=== PATIENT | female | born 1995 | race Two or more races ===

== ENCOUNTER 2024-05-13 04:41 | Day surgery (SDC) | payer OTHER ==
[2024-05-12 09:58] VITALS: BMI 42.9
[2024-05-13] MEDS: ceFAZolin SODIUM 1 GM VIAL IVPB ONE
[2024-05-13] MEDS ORDERED: PROPOFOL 20 ML ONE ×2 (14:36→15:12)
[2024-05-13] MEDS ORDERED: DEXAMETHASONE SOD PHOSPHATE 4 MG/1 ML VIAL ONE (14:37)
[2024-05-13] MEDS ORDERED: MIDAZOLAM HCL 2 MG/2 ML SINGLE DOSE VIAL ONE (14:37)
[2024-05-13] MEDS ORDERED: KETOROLAC TROMETHAMINE 30 MG/1 ML VIAL ONE (14:37)
[2024-05-13] MEDS ORDERED: LIDOCAINE HCL/PF 2% SDV 5ML VIAL ONE (14:37)
[2024-05-13] MEDS ORDERED: ONDANSETRON 4 MG/2 ML VIAL ONE (14:37)
[2024-05-13] MEDS: SILVER NITRATE 75% APPLIC STCK 1 PKT EACH TP ONE (15:29)
[2024-05-13] MEDS ORDERED: ONDANSETRON 4 MG/2 ML VIAL IVPUSH PRN (15:47)
[2024-05-13] MEDS ORDERED: oxyCODONE HCL 5 MG TABLET PO PRN (15:47)
[2024-05-13] MEDS: LACTATED RINGERS SOLUTION 1,000 ML IV SCH (16:22)
[2024-05-13 18:18] VITALS: RESP 20; TEMP 97.2
[2024-05-13 18:27] VITALS: BP 114/58; PULSE 78
== END 2024-05-13 18:09 | disposition home or self-care (01) ==
LOC: JASU-SURG 04:41
PROVIDERS: ATTEND Obstetrics & Gynecology
PROC: 0UB98ZZ Excision of Uterus, Via Natural or Artificial Opening Endoscopic (ICD-10-PCS; principal; 2024-05-13 13:00)
DX: N93.9 Abnormal uterine and vaginal bleeding, unspecified (principal); N84.0 Polyp of corpus uteri
CPT/HCPCS: 81025; 88305-TC; 94760